=== PATIENT | female | born 1995 | race Asian ===

== ENCOUNTER 2018-12-23 12:44 | Emergency (ER) | payer BC ==
[2018-12-23 13:45] LABS: URINE BLOOD (Dip) POC Trace-intact (NEGATIVE); URINE GLUCOSE (Dip) POC Negative (NEGATIVE); URINE KETONES (Dip) POC Negative (NEGATIVE); URINE LEUKOCYTE EST (Dip) POC Negative (NEGATIVE); URINE NITRITE (Dip) POC Negative (NEGATIVE); URINE TOTAL PROTEIN POC Negative (NEGATIVE)
[2018-12-23 13:45] LABS: URINE PH (Dip) POC 5.5 (5.0-8.5)
== END 2018-12-23 14:49 | disposition home or self-care (01) ==
LOC: FTE 12:44
DX: M54.5 Low back pain (principal)
CPT/HCPCS: 81003; 81025; 99283

== ENCOUNTER 2019-02-24 16:27 | Emergency (ER) | payer BC ==
[2019-02-24] MEDS: ONDANSETRON (ODT) 4 MG TAB ODT (17:09)
[2019-02-24 17:22] LABS: ADD UMIC NO; UR ASCORBIC ACID 20 mg/dL (NEGATIVE); UR BILIRUBIN (Dip) NEGATIVE (NEGATIVE); UR BLOOD (Dip) NEGATIVE (NEGATIVE); UR CLARITY CLEAR (CLEAR); UR COLOR STRAW (YELLOW); UR GLUCOSE (Dip) NEGATIVE (NEGATIVE); UR KETONES (Dip) NEGATIVE (NEGATIVE); UR LEUKOCYTE ESTERASE (Dip) NEGATIVE Leu/ul (NEGATIVE); UR NITRITE (Dip) NEGATIVE (NEGATIVE); UR SPECIFIC GRAVITY (Dip) 1.004 (1.003-1.030); UR TOTAL PROTEIN (Dip) NEGATIVE (NEGATIVE); UR UROBILINOGEN (Dip) NEGATIVE (NEGATIVE)
== END 2019-02-24 18:29 | disposition home or self-care (01) ==
LOC: FTE 16:27
DX: G44.219 Episodic tension-type headache, not intractable (principal); J45.909 Unspecified asthma, uncomplicated; R35.0 Frequency of micturition
CPT/HCPCS: 81003; 81025; 87086; 99283